=== PATIENT | female | born 1945 | race American Indian/Alaskan Native ===

== ENCOUNTER 2016-10-21 12:33 | Day surgery (SDC) | payer MEDICARE, OTHER ==
[2016-10-21] MEDS ORDERED: NACL 0.9% 1,000 ML, VANCOMYCIN VIAL 1,000 MG IR ONE (12:55)
[2016-10-21 13:51] LABS: INR 0.92 (0.87-1.13)
[2016-10-21 13:52] LABS: Partial Thromboplastin Time 30.9 Sec. (24.2-36.6)
[2016-10-21] MEDS ORDERED: NACL 0.9% 1000 ML 1,000 ML IV SCH (14:00)
[2016-10-21 14:03] LABS: BUN/Creatinine Ratio 22.72; Calcium 9.4 mg/dL (8.4-10.2); Chloride 99.4 mmol/L (98-107)
[2016-10-21 14:16] LABS: Basophils % (Auto) 0.4 % (0.0-1.8); Eosinophils % (Auto) 1.5 % (0.0-4.3); Hematocrit 41.8 % (30.3-42.9); Hemoglobin 13.1 gm/dl (10.1-14.3); Mean Corpuscular HGB Conc 31 % (30-34); Mean Corpuscular Volume 80 fl (79-97); Platelet Count 197 K/mm3 (140-440); Red Blood Count 5.23 M/mm3 (3.65-5.03); Red Cell Distribution Width 15.7 % (13.2-15.2); White Blood Count 7.7 K/mm3 (4.5-11.0)
[2016-10-21 14:17] LABS: Mean Corpuscular Hemoglobin 25 pg (28-32)
[2016-10-21 15:12] LABS: Potassium 5.9 mmol/L (3.6-5.0)
[2016-10-21] MEDS ORDERED: XYLOCAINE 2% INFILTRATI ONE (16:33)
[2016-10-21] MEDS ORDERED: NACL 0.9% 500 ML 500 ML ONE (16:33)
[2016-10-21] MEDS ORDERED: VERSED ONE (16:33)
[2016-10-21] MEDS ORDERED: ANCEF/STERILE WATER 2 GM/20 ML 2 GM/20 ML SYRINGE IV ONE (16:34)
[2016-10-21] MEDS: SUBLIMAZE ONE ×2 (17:00→17:10)
[2016-10-21] MEDS ORDERED: VANCOMYCIN VIAL 1,000 MG in NACL 0.9% 1,000 ML IRRIGATION ONE (17:14)
[2016-10-21 17:51] VITALS: BP 130/70
--- NOTE | 2016-10-28 23:28 | Cardiac Catherization Report ---
ELECTROPHYSIOLOGY PROCEDURE TYPE OF PROCEDURE: Explantation of implantable loop recorder. DESCRIPTION OF PROCEDURE: The patient was brought to the catheter finisher and inspector. The patient was prepped and draped in the usual sterile fashion. Local anesthesia was obtained with 2% lidocaine. Antibiotics were given intravenously prior to the procedure for surgical prophylaxis. A 1 cm incision was made over the old incision. Using blunt dissection and electrocautery, we dissected down to the level of the implantable loop recorder. The loop recorder was removed. The pocket was irrigated with antibiotic solution and inspected to ensure hemostasis. CLOSURE: We used 2-0, 3-0, and 4-0 Vicryl. The incision was protected with Steri-Strips, gauze and clear adhesive dressing was applied. COMPLICATIONS: None. ESTIMATED BLOOD LOSS: 2 mL. ASSESSMENT: Successful explantation of implantable loop recorder. PLAN: Follow up for incision check in 8-10 days. JOB# [id number] LATOYA/LILY
== END 2016-10-21 18:05 | disposition home or self-care (01) ==
LOC: CATHLABREC 12:33
PROVIDERS: ATTEND Internal Medicine Cardiovascular Disease
DX: Z45.09 Encounter for adjustment and management of other cardiac device (principal); I25.10 Atherosclerotic heart disease of native coronary artery without angina pectoris; E11.9 Type 2 diabetes mellitus without complications; E78.5 Hyperlipidemia, unspecified; I10 Essential (primary) hypertension; Z90.49 Acquired absence of other specified parts of digestive tract; Z98.890 Other specified postprocedural states; Z79.82 Long term (current) use of aspirin; Z79.899 Other long term (current) drug therapy; Z88.8 Allergy status to other drugs, medicaments and biological substances; Z79.4 Long term (current) use of insulin; Z83.3 Family history of diabetes mellitus; Z82.49 Family history of ischemic heart disease and other diseases of the circulatory system
CPT/HCPCS: 33284; 36415; 80048; 82962; 85025; 85610; 85730; J0690; J2250; J3010; J3370; J7030; J7040